=== PATIENT | male | born 1965 | race Two or more races ===

== ENCOUNTER 2023-05-12 05:10 | Day surgery (SDC) | payer OTHER | END 2023-05-12 10:20 | disposition home or self-care (01) | LOC: AMB-ENDOS 05:10 | PROVIDERS: ATTEND Colon & Rectal Surgery | DX: C20 Malignant neoplasm of rectum (principal); D12.0 Benign neoplasm of cecum; D12.2 Benign neoplasm of ascending colon; K63.5 Polyp of colon; K57.30 Diverticulosis of large intestine without perforation or abscess without bleeding; R59.0 Localized enlarged lymph nodes; Z20.822 Contact with and (suspected) exposure to COVID-19; Z88.0 Allergy status to penicillin ==